=== PATIENT | female | born 1935 | race Caucasian/White ===

== ENCOUNTER → 2018-07-20 | Outpatient (CLI) | payer MEDICARE, MEDICAID ==
--- NOTE | 2018-07-20 16:04 | RADIOLOGY REPORT (SQ) ---
EXAM DESCRIPTION: CAROTID DOPPLER COMPLETED DATE/TIME: 07/20/2018 3:12 pm REASON FOR STUDY: RETINAL HEMORRHAGE LEFT EYE H35.62 RETINAL HEMORRHAGE, LEFT EYE COMPARISON: None. TECHNIQUE: Grayscale ultrasound, Doppler velocity and spectra, and color Doppler images acquired of the extra-cranial carotid and vertebral arteries. Images stored on PACS. LIMITATIONS: None. FINDINGS: RIGHT CAROTID CCA Velocities: Within normal limits. ICA Velocities Peak systolic 86 cm/s. End diastolic 15 cm/s. Proximal ICA/CCA peak systolic ratio 1.3. There is plaque in the proximal internal and external carotid arteries. LEFT CAROTID CCA Velocities: Within normal limits. ICA Velocities Peak systolic 91 cm/s. End diastolic 20 a cm/s. Proximal ICA/CCA peak systolic ratio 1.4. There is some plaque in the common carotid and in the external carotid. VERTEBRAL ARTERIES: Antegrade flow. Normal waveforms. SUBCLAVIAN ARTERIES: No finding. OTHER: No other significant finding. IMPRESSION: NO HEMODYNAMICALLY SIGNIFICANT STENOSIS. COMMENT: Quality ID #[id number]: Velocity criteria are extrapolated from the diameter data as defined by t he Society of Radiologists in Ultrasound Consensus Conference. Radiology 2003: 229; 340-346. TECHNICAL DOCUMENTATION: JOB ID: [id number] [employer]- All Rights Reserved Reading location - IP/workstation name: [email or web address]
== END ==
LOC: SP 16:22
PROVIDERS: ATTEND Ophthalmology
DX: H35.62 Retinal hemorrhage, left eye (principal)
CPT/HCPCS: 93880

== ENCOUNTER 2018-08-18 19:59 | Emergency (ER) | payer MEDICARE, MEDICAID ==
--- NOTE | 2018-08-18 21:09 | RADIOLOGY REPORT (SQ) ---
EXAM DESCRIPTION: XR CHEST 2 VIEWS COMPLETED DATE/TME: 08/18/2018 20:35 CLINICAL HISTORY: 82 years, Female, FEVER Compared to 12/16/2015. FINDINGS: The heart is not enlarged. Aorta is uncoiled. Aortic arch is calcified. No consolidations or pleural effusions. No pulmonary edema or pneumothorax. IMPRESSION: No acute disease.
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
[2018-08-18 21:27] LABS: ABSOLUTE EOSINOPHILS # (AUTO) 0.1 10^3/uL (0.0-0.6); ABSOLUTE MONOCYTES (AUTO) 0.6 10^3/uL (0.1-1.4); ABSOLUTE NEUT (AUTO) 8.1 10^3/uL (1.7-8.2); BASOPHILS % (AUTO) 0.4 % (0-2); EOSINOPHILS % (AUTO) 1.3 % (0-6); HEMATOCRIT 40.5 % (36.0-47.0); HEMOGLOBIN 13.9 g/dL (12.0-15.5); LYMPHOCYTES % (AUTO) 9.9 % (13-45); MEAN CORPUSCULAR HEMOGLOBIN 33.8 pg (27.0-33.4); MEAN CORPUSCULAR HGB CONC 34.2 g/dL (32.0-36.0); MEAN CORPUSCULAR VOLUME 99 fl (80-97); MONOCYTES % (AUTO) 6.1 % (3-13); PLATELET COUNT 146 10^3/uL (150-450); RED CELL DISTRIBUTION WIDTH 15.3 % (11.5-14.0); SEGMENTED NEUTROPHILS % (AUTO) 82.3 % (42-78); TOTAL CELLS COUNTED % (AUTO) 100 %; WHITE BLOOD COUNT 9.9 10^3/uL (4.0-10.5)
[2018-08-18 21:28] LABS: VENOUS BLOOD BASE EXCESS 6.2 mmol/L; VENOUS BLOOD HCO3 32.1 mmol/L (20-32); VENOUS BLOOD PCO2 50.5 mmHg (35-63); VENOUS BLOOD PH 7.42 (7.30-7.42)
[2018-08-18 21:34] LABS: INTERNATIONAL RATION (INR) 0.98; PROTHROMBIN TIME 13.5 SEC (11.4-15.4)
[2018-08-18 21:41] LABS: ALANINE AMINOTRANSFERASE 35 U/L (9-52); ALBUMIN 4.2 g/dL (3.5-5.0); ALKALINE PHOSPHATASE 167 U/L (38-126); ANION GAP 12 (5-19); ASPARTATE AMINO TRANSFERASE 66 U/L (14-36); BILIRUBIN,DIRECT 0.4 mg/dL (0.0-0.4); BILIRUBIN,TOTAL 1.3 mg/dL (0.2-1.3); BLOOD UREA NITROGEN 13 mg/dL (7-20); CALCIUM 8.9 mg/dL (8.4-10.2); CARBON DIOXIDE 32 mmol/L (22-30); CHLORIDE 99 mmol/L (98-107); GLUCOSE 158 mg/dL (75-110); POTASSIUM 3.5 mmol/L (3.6-5.0); TOTAL PROTEIN 7.3 g/dL (6.3-8.2)
[2018-08-18] MEDS ORDERED: METHYLPREDNISOLONE INJ 125 MG/2 ML SDV IV ONE (22:16)
[2018-08-18] MEDS ORDERED: IPRATROPIUM/ALBUTEROL 0.5-2.5 MG/3 ML AMPUL NEB ONE (22:16)
[2018-08-18] MEDS ORDERED: ACETAMINOPHEN 325 MG TABLET PO ONE (22:17)
--- NOTE | 2018-08-18 22:20 | ER Document Report ---
ED Flu Like - General Chief Complaint: Flu Symptoms Stated Complaint: COUGH Time Seen by Provider: 08/18/18 21:27 Primary Care Provider: MASON DOTY DO [ACTIVE STAFF] - Follow up as needed Mode of Arrival: Medic Information source: Patient Notes: 82-year-old female with a history of hypertension, coronary artery disease, hyperlipidemia presents the emergency department with complaints of flulike symptoms. Patient states that she has had intermittent cough and rhinorrhea since March. She states that she is followed up with her PCP, Malinda harper and has been given albuterol inhalers. Patient states that it does help with her symptoms. Patient states that she continues with the cough. She states that it is productive now. She is on home oxygen. She wears 3 L at night. Family states that there has been a history of sick contacts recently. Patient denies any chest pain or shortness of breath. TRAVEL OUTSIDE OF THE [place] IN LAST 30 DAYS: No - HPI Onset: Last week Timing/Duration: Persistent Quality of pain: No pain Severity: Mild Pain Level: Denies Associated symptoms: Productive cough, Rhinnorhea Similar symptoms previously: Yes Recently seen / treated by doctor: Yes - Related Data Allergies/Adverse Reactions: Potassium Clavulanate * [From Augmentin] Allergy (Severe, Verified 04/25/13 16:41) hydrocodone bitartrate [From Vicodin] Adverse Reaction (Severe, Verified 04/25/13 16:41) sulfamethoxazole [From Septra] Adverse Reaction (Severe, Verified 04/25/13 16:41) trimethoprim [From Septra] Adverse Reaction (Severe, Verified 04/25/13 16:41) Past Medical History - General Information source: Patient - Social History Smoking Status: Former Smoker Family History: Reviewed & Not Pertinent - Past Medical History Cardiac Medical History: Reports: Hx Hypercholesterolemia, Hx Hypertension Malignancy Medical History: Reports: Hx Skin Cancer Musculoskeletal Medical History: Reports Hx Arthritis Psychiatric Medical History: Reports: Hx Depression Past Surgical History: Reports: Hx Cardiac Catheterization - stent, Hx Cholecystectomy, Hx Orthopedic Surgery - foot - Immunizations Hx Diphtheria, Pertussis, Tetanus Vaccination: Yes Hx Pneumococcal Vaccination: 04/29/13 Review of Systems - Review of Systems Constitutional: No symptoms reported EENT: Nose congestion, Nose discharge Cardiovascular: No symptoms reported Respiratory: Cough, Sputum, Wheezing Gastrointestinal: No symptoms reported Genitourinary: No symptoms reported Female Genitourinary: No symptoms reported Musculoskeletal: No symptoms reported Skin: No symptoms reported Hematologic/Lymphatic: No symptoms reported Neurological/Psychological: No symptoms reported -: Yes All other systems reviewed and negative Physical Exam - Vital signs Vitals: Temp Pulse Resp BP Pulse Ox 100.0 F 72 26 H 121/64 90 L 08/18/18 20:23 08/18/18 20:23 08/18/18 20:23 08/18/18 20:23 08/18/18 20:23 - Notes Notes: PHYSICAL EXAMINATION: GENERAL: Well-appearing, well-nourished and in no acute distress. HEAD: Atraumatic, normocephalic. EYES: Pupils equal round and reactive to light, extraocular movements intact, conjunctiva are normal. ENT: Nares patent, oropharynx clear without exudates. Moist mucous membranes. NECK: Normal range of motion, supple without lymphadenopathy LUNGS: Diffuse wheezing. No respiratory distress. Speaking in complete sentences. HEART: Regular rate and rhythm without murmurs ABDOMEN: Soft, nontender, nondistended abdomen. No guarding, no rebound. No masses appreciated. Female : deferred Musculoskeletal: Normal range of motion, no pitting or edema. No cyanosis. NEUROLOGICAL: Cranial nerves grossly intact. Normal speech, normal gait. Normal sensory, motor exams PSYCH: Normal mood, normal affect. SKIN: Warm, Dry, normal turgor, no rashes or lesions noted. Course - Re-evaluation Re-evalutation: 08/19/18 00:07 Labs and imaging obtained. Chest x-ray does not show an acute process. Patient's white blood cell count is normal. Remaining labs are unremarkable. Jg shaikh does have a slight urinary tract infection. Patient states that she has chronic urinary tract infections and she is on Keflex prophylactically. Patient was given a gram of Rocephin in the emergency department. Vital signs rechecked. Patient's temperature is now 100.4. Patient was given Tylenol. The rest of the patient's vital signs are improved. On reevaluation, patient's wheezing is reduced. Patient states that she is feeling much better. Patient declines admission. Patient states that she wants to try outpatient antibiotics. I instructed the patient to take the medication prescribed as directed to follow-up with her primary care physician this week for reevaluation, and to return to the emergency department if she continues to have fevers is not eating, drinking or feels like her symptoms are worsening. Patient and her family members are agreeable with plan of care - Vital Signs Vital signs: Temp Pulse Resp BP Pulse Ox 100.4 F 76 19 131/66 H 96 08/18/18 23:52 08/18/18 23:52 08/18/18 23:52 08/18/18 23:52 08/18/18 23:52 - Laboratory Result Diagrams: 08/18/18 21:14 08/18/18 21:14 Laboratory results interpreted by me: 08/18/18 08/18/18 08/18/18 21:14 21:14 21:14 MCV 99 H MCH 33.8 H RDW 15.3 H Plt Count 146 L Seg Neutrophils % 82.3 H Lymphocytes % 9.9 L VBG HCO3 32.1 H Potassium 3.5 L Carbon Dioxide 32 H Est GFR (Non-Af Amer) 59 L Glucose 158 H AST 66 H Alkaline Phosphatase 167 H Ur Leukocyte Esterase 08/18/18 22:35 MCV MCH RDW Plt Count Seg Neutrophils % Lymphocytes % VBG HCO3 Potassium Carbon Dioxide Est GFR (Non-Af Amer) Glucose AST Alkaline Phosphatase Ur Leukocyte Esterase LARGE H Discharge - Discharge Clinical Impression: Bronchitis Urinary tract infection Qualifiers: Urinary tract infection type: site unspecified Hematuria presence: without hematuria Qualified Code(s): N39.0 - Urinary tract infection, site not specified Condition: Stable Disposition: HOME, SELF-CARE Instructions: Bronchitis With Bronchospasm (Wheezing) ([facility]), Urinary Tract Infection ([facility]) Prescriptions: Benzonatate [Tessalon Perles 100 mg Capsule] 100 mg PO Q8HP PRN #20 capsule PRN Reason: Albuterol Sulfate [Proair HFA Inhalation Aerosol 8.5 gm MDI] 2 puff IH Q4H PRN #1 mdi PRN Reason: Cefpodoxime Proxetil [Vantin 200 mg Tablet] 1 tab PO Q12 #14 tab Prednisone [Deltasone 20 mg Tablet] 3 tab PO DAILY 5 Days #15 tablet Referrals: MASON DOTY DO [ACTIVE STAFF] - Follow up as needed
[2018-08-18 22:42] LABS: A TYPE INFLUENZA AG NEGATIVE (NEGATIVE); B INFLUENZA AG NEGATIVE (NEGATIVE)
[2018-08-18 23:05] LABS: APPEARANCE,URINE CLEAR; BILIRUBIN,URINE NEGATIVE (NEGATIVE); COLOR,URINE YELLOW; GLUCOSE, URINE NEGATIVE (NEGATIVE); KETONES,URINE NEGATIVE (NEGATIVE); LEUKOCYTE ESTERASE,URINE LARGE (NEGATIVE); NITRITE,URINE NEGATIVE (NEGATIVE); PROTEIN,URINE NEGATIVE (NEGATIVE); UROBILINOGEN,URINE NEGATIVE mg/dL (<2.0)
[2018-08-18] MEDS ORDERED: CEFTRIAXONE INJ 1000 MG VIAL IV ONE (23:45)
[2018-08-18 23:53] VITALS: BP 131/66
--- NOTE | 2018-08-19 23:05 | EKG REPORT ---
SEVERITY:- ABNORMAL ECG - SINUS RHYTHM IVCD, CONSIDER ATYPICAL LBBB : Confirmed by: Alesha Way 19-Aug-2018 23:05:10
== END 2018-08-19 01:44 | disposition home or self-care (01) ==
LOC: ER 19:59
DX: J40 Bronchitis, not specified as acute or chronic (principal); N39.0 Urinary tract infection, site not specified; R06.2 Wheezing; R09.81 Nasal congestion; R05 Cough; J34.89 Other specified disorders of nose and nasal sinuses; I25.10 Atherosclerotic heart disease of native coronary artery without angina pectoris; I10 Essential (primary) hypertension; Z99.81 Dependence on supplemental oxygen; Z88.0 Allergy status to penicillin; Z87.891 Personal history of nicotine dependence; Z95.5 Presence of coronary angioplasty implant and graft
CPT/HCPCS: 93005; 94640; 99284; 96375; 96365; 36415; 87040; 87086; 85025; 85610; 87088; 80053; 81001; 87186; 82803; 83605; 87804; 71046; 93010; A9270 ×2; J2930; J0696; J7620

== ENCOUNTER 2019-01-28 11:55 | Emergency (ER) | payer MEDICARE, MEDICAID ==
--- NOTE | 2019-01-28 12:10 | ER Document Report ---
HPI - HPI Patient complains to provider of: low back pain, weakness Time Seen by Provider: 01/28/19 12:08 Onset: Last week Onset/Duration: Gradual, Persistent, Waxing and waning Quality of pain: Sharp Severity: Moderate Pain Level: 2 Context: 83-year-old female with a list of past medical history here for low back pain, left leg weakness, and generalized weakness for the last week, worsening after she had a fall a week ago. She has not sought medical care until now. Her daughter states that she had 2 episodes of this last week of fecal incontinence. She states she appears to drag her left leg when she transfers now. States usually she is able to only transfer at baseline however she requires significant assistance to you to achieve this now. She states she has had significant fatigue and mostly slept over the last week which is atypical for her. No spinal surgeries. She recently had a UTI was on 3 different antibiotics however states those symptoms resolved over a week ago. No spinal surgeries. Has complaints of pain in her left hip. No numbness, tingling, other weakness, saddle anesthesia, or urinary incontinence or retention. No other trauma or injury or history of this before. No IV drug use. No fevers. Pain worse with movement. better with rest. Denies hitting her head or passing out. No seizure-like activity. No other complaints at this time. Associated Symptoms: Weakness. denies: Chest pain, Fever, Headache, Leg swelling, Nausea, Vomiting, Shortness of breath Exacerbated by: Movement Relieved by: Remaining still Similar symptoms previously: No Recently seen / treated by doctor: No - ROS Systems Reviewed and Negative: Yes All other systems reviewed and negative - to include 10, unless mentioned in the hpi - REPRODUCTIVE Reproductive: DENIES: : Past Medical History - General Information source: Patient, Relative - daughter, son in law, and grand daughter - Social History Smoking Status: Unknown if Ever Smoked Frequency of alcohol use: None Drug Abuse: None Lives with: Family Family History: Reviewed & Not Pertinent Patient has suicidal ideation: No Patient has homicidal ideation: No - Past Medical History Cardiac Medical History: Reports: Hx Hypercholesterolemia, Hx Hypertension Denies: Hx DVT, Hx Pulmonary Embolism Neurological Medical History: Reports: Other - peripheral neuropathy. Denies: Hx Seizures Endocrine Medical History: Denies: Hx Diabetes Mellitus Type 1, Hx Diabetes Mellitus Type 2, Hx Hyperthyroidism, Hx Hypothyroidism Renal/ Medical History: Denies: Hx Peritoneal Dialysis Malignancy Medical History: Reports: Hx Skin Cancer GI Medical History: Reports: Hx Gastroesophageal Reflux Disease Musculoskeletal Medical History: Reports Hx Arthritis, Reports Hx Gout Psychiatric Medical History: Reports: Hx Depression Past Surgical History: Reports: Hx Cardiac Catheterization - stent, Hx Cholecystectomy, Hx Orthopedic Surgery - foot - Immunizations Hx Diphtheria, Pertussis, Tetanus Vaccination: Yes Hx Pneumococcal Vaccination: 04/29/13 Vertical Provider Document - CONSTITUTIONAL Notes: Vital signs: All vital signs were reviewed per nursing notes. Gen. Appearance: Nontoxic, patient of stated age, sitting comfortably in the bed. pleasant, obese elderly white female, sits up with assistance, smiling, speaking in full sentences, in no sign of pain or resp distress, however does appear to have pain on movement, nontoxic, family at bedside Psychiatric: Alert and oriented x3, pleasant and very conversational, normal affect. Skin: Warm, pink, dry, normal turgor, no rashes. no grossly visible overlying skin changes or signs of trauma. HEENT: Normocephalic, atraumatic, no chawla signs. no raccoon eyes, pupils are equal and reactive to light, extraocular muscles intact, tympanic membranes and canals normal bilat, mucosal membranes moist, pink conjunctiva, no pharyngeal erythema no tonsilar exudate. no drooling, tripoding, voice change or stridor, uvula midline. tongue protrudes midline Neck: Supple, no JVD, no tenderness, no lymphadenopathy. full rom and full strength. no meningeal signs. no signs of central cord syndrome CV: Regular rate and rhythm, no murmurs Lungs: Clear to auscultation bilaterally, no wheezes, symmetrical chest rise. no chest wall ttp Abdomen: Soft, nontender, nondistended, good bowel sounds, no rebound, rigidity, guarding or peritoneal signs. No CVA tenderness bilaterally. This is a nonacute abdomen. No tenderness over McBurney's point. no grossly visible or pal pable abdominal hernias Genitalia: pt deferred Rectal: deferred; however, no sign of loss of bowel or bladder, no soiling of clothing Back: There is increased tissue tension over the paralumbar musculature on the bilat sides, L>R. Palpation to this region did reproduce patient's pain exactly. There is no tenderness to palpation along the midline of the cervical, thoracic or lumbar spine. There are no step-offs or deformities noted. no overlying skin changes. Extremities: Distal pulses two out of four, good capillary refill, no edema, cyanosis or clubbing. full rom and full strength in all extremities with pain on left hip flexion and extension. no swelling or ttp of the extremities. gait not assessed due to pt being mostly nonambulatory at baseline. good hand retail general manager. neg mauricio sign. neg [place] squeeze. no drop foot. no shortening or rotation of the limbs. no obvious deformities. Neuro: Cranial nerves II through XII intact, normal speech, cerebellar function intact. Symmetric smile and faces. reflexes wnl. motor and sensation intact to light touch. - INFECTION CONTROL TRAVEL OUTSIDE OF THE [place] IN LAST 30 DAYS: No Course - Re-evaluation Re-evalutation: 01/28/19 19:27 Patient here for low back pain and left hip pain x 1 wk. She also describes 2 episodes of fecal incontinence and left leg weakness and generalized weakness over the last week after she had an accidental mechanical fall. Her labs were unremarkable other than a potassium of 2.8 which was replaced IV. Case discussed with ED attending, Dr. Stephen, who advised to get a CT of her lumbar spine and hip first and if it showed an acute fracture then we could transfer to a tertiary facility that had neurosurgery since that is not available here at this facility. Her CT lumbar spine and CT left hip without contrast showed degenerative changes but was otherwise negative for anything acute per radiology and reviewed by myself. secondary to her hx and concern for cauda equina dr stephen, did then advise to get an MRI of her lumbar spine. i then called the radiologist general operations manager, dr sandoval, and asked her if she needed the mri of her lumbar spine to rule out cauda equina with and without contrast or just without contrast and she told me to order it with and without and she would cancel the w ith if she felt necessary. mri of her lumbar spine just showed chronic degenerative changes but nothing acute per rad and reviewed by myself. pt informed of her findings. she was pain controlled here. advised tylenol for any pain at home. ice/heat to the area. she has medicaid so advised she needs to f/u with her pcp for a referral to likely neurosurg in 1-2 days and that pcp can set up PT/OT at home to help strengthen her back up. also will dc with 7 days of KCl 20meq po qD x 7 days given her significant hypokalemia here today. her ekg was unremarkable per dr stephen. advised to return to the er for any worsening sx. no other signs of spinal cord involvement, cauda equina, or central cord syndrome and pt remained neurononfocal here. vss. well appearing. satting well on ra. On reexam, pt improved with tx listed. remained stable. nontoxic. well appearing. pain controlled. tolerating po. requesting to go home. case discussed with ER Attending, Dr. stephen, who directed and agrees with plan of care and advised no further workup indicated at this time and pt is stable for dc home with close f/u with pcp/specialist. Documentation achieved through voice recording which my lead to some occasional accidental typographical errors. Extensive efforts have been made to proof read documentation to make sure these are the least as possible. Category Date Time Status EKG Documentation STAT Care 01/28/19 13:54 Completed Straight Catheter (ED) NOW Care 01/28/19 13:[address] LT LOWER EXTREMITY WITHOUT [CT] Stat Exams 01/28/19 13:[address] LUMBAR SPINE WITHOUT [CT] Stat Exams 01/28/19 13:01 Completed MRI LUMBAR SPINE COMBO [MRI] Stat Exams 01/28/19 14:18 Completed CBC WITH DIFF [HEME] Stat Lab 01/28/19 12:29 Completed CMP [COMPREHENSIVE METABOLIC PANEL] [CHEM] Stat Lab 01/28/19 12:29 Completed MAGNESIUM [CHEM] Stat Lab 01/28/19 12:29 Completed T4 [FREE T4 (FREE THYROXINE)] [CHEM] Stat Lab 01/28/19 12:29 Completed TSH [THYROID STIMULATING HORMONE] [CHEM] Stat Lab 01/28/19 12:29 Completed UA [URINALYSIS] [URIN] Stat Lab 01/28/19 13:41 Completed Oxycodone HCl [Oxy-Ir 5 mg Tablet] Med 01/28/19 15:34 Discontinued 5 mg PO NOW ONE Potassi Cl 20 Meq/50 ml Ady [Potassium Chloride Ady Med 01/28/19 14:05 Discontinued 20 Meq/50 ml] 20 meq in 50 ml IV Q2H [place] Cl 40 Meq/Ns 1L [NaCl 0.9% 1000 ml/KCl 40 Meq Med 01/28/19 13:31 Discontinued Premix Bag] 1,000 ml IV CONTINUOUS EKG ER ONLY [ER] Stat Oth 01/28/19 Completed - Vital Signs Vital signs: Temp Pulse Resp BP Pulse Ox 98 F 61 12 119/62 95 01/28/19 12:06 01/28/19 12:06 01/28/19 12:06 01/28/19 12:06 01/28/19 12:06 01/28/19 19:40 Temp Pulse Resp BP BP Pulse Ox 01/28/19 16:34 21 H 129/93 H 98 01/28/19 16:33 22 H 97 01/28/19 16:26 21 H 147/79 H 98 01/28/19 16:25 98.1 F 18 99 01/28/19 16:19 21 H 150/95 H 99 01/28/19 16:18 19 01/28/19 16:00 27 H 100 01/28/19 15:46 26 H 155/101 H 98 01/28/19 15:01 15 117/59 L 01/28/19 14:01 13 110/61 95 01/28/19 13:01 13 113/61 01/28/19 12:06 98 F 61 13 119/62 119/62 95 - Laboratory Result Diagrams: 01/28/19 12:29 01/28/19 12:29 Laboratory results interpreted by me: 01/28/19 19:41 Labs- Entire Visit 01/28/19 01/28/19 01/28/19 12:29 12:29 12:29 WBC 8.3 RBC 3.94 Hgb 12.8 Hct 39.3 MCV 100 H MCH 32.6 MCHC 32.6 RDW 15.7 H Plt Count 143 L Seg Neutrophils % 61.9 Lymphocytes % 26.9 Monocytes % 8.3 Eosinophils % 2.6 Basophils % 0.3 Absolute Neutrophils 5.1 Absolute Lymphocytes 2.2 Absolute Monocytes 0.7 Absolute Eosinophils 0.2 Absolute Basophils 0.0 Sodium 145.2 H Potassium 2.8 L* Chloride 103 Carbon Dioxide 36 H Anion Gap 6 BUN 11 Creatinine 1.01 Est GFR ( Amer) > 60 Est GFR (Non-Af Amer) 52 L Glucose 106 Calcium 9.1 Magnesium 2.2 Total Bilirubin 0.9 Direct Bilirubin 0.3 Neonat Total Bilirubin Not Reportable Neonat Direct Bilirubin Not Reportable Neonat Indirect Bili Not Reportable AST 39 H ALT 13 Alkaline Phosphatase 135 H Total Protein 7.2 Albumin 3.7 TSH 1.88 Free T4 0.93 Urine Color Urine Appearance Urine pH Ur Specific [place] Urine Protein Urine Glucose (UA) Urine Ketones Urine Blood Urine Nitrite Urine Bilirubin Urine Urobilinogen Ur Leukocyte Esterase Urine WBC (Auto) Urine RBC (Auto) Urine Mucus (Auto) Urine Ascorbic Acid 01/28/19 13:41 WBC RBC Hgb Hct MCV MCH MCHC RDW Plt Count Seg Neutrophils % Lymphocytes % Monocytes % Eosinophils % Basophils % Absolute Neutrophils Absolute Lymphocytes Absolute Monocytes Absolute Eosinophils Absolute Basophils Sodium Potassium Chloride Carbon Dioxide Anion Gap BUN Creatinine Est GFR ( Amer) Est GFR (Non-Af Amer) Glucose Calcium Magnesium Total Bilirubin Direct Bilirubin Neonat Total Bilirubin Neonat Direct Bilirubin Neonat Indirect Bili AST ALT Alkaline Phosphatase Total Protein Albumin TSH Free T4 Urine Color YELLOW Urine Appearance CLEAR Urine pH 7.0 Ur Specific [place] 1.009 Urine Protein NEGATIVE Urine Glucose (UA) NEGATIVE Urine Ketones NEGATIVE Urine Blood NEGATIVE Urine Nitrite NEGATIVE Urine Bilirubin NEGATIVE Urine Urobilinogen NEGATIVE Ur Leukocyte Esterase NEGATIVE Urine WBC (Auto) 4 Urine RBC (Auto) 1 Urine Mucus (Auto) RARE Urine Ascorbic Acid NEGATIVE - Diagnostic Test Radiology reviewed: Image reviewed, Reports reviewed Radiology results interpreted by me: 01/28/19 19:[address] 01/28/19 13:01 IMPRESSION: No fracture dislocation of the lumbar spine. There is generally mild multilevel disc degenerative disease and severe multilevel facet degenerative disease and multilevel facet ankylosis. Lumbar disc and neural foraminal pathology may be further evaluated by MRI if indicated by localizing signs and symptoms. Lower Extremity CT 01/28/19 13:02 IMPRESSION: NO ACUTE OR SIGNIFICANT FINDINGS IN THE HIP OR PELVIS. Lumbar Spine MRI 01/28/19 14:18 IMPRESSION: Mild degenerative changes as above. No acute findings - EKG Interpretation by Me EKG shows normal: Sinus rhythm - 61bpm. no stemi, nonspecific ivcd with lad, lvh with secondary repolarization abnormality, reviewed with dr stephen Shunk/QRS: IVCD When compared to previous EKG there are: No significant change Discharge - Discharge Clinical Impression: Bulging discs, Hypokalemia Low back pain Qualifiers: Chronicity: acute Back pain laterality: unspecified Sciatica presence: with sciatica Sciatica laterality: sciatica of left side Qualified Code(s): M54.42 - Lumbago with sciatica, left side Condition: Good Disposition: HOME, SELF-CARE Instructions: Herniated Disc ([facility]), Hypokalemia ([facility]), Low Back Pain ([facility]) Additional Instructions: follow-up with PCP/neurosurgery 1 to 2 days. Return for any worsening symptoms. Ice/heat to your back. Tylenol as needed for any pain. Take the medication as prescribed. Follow-up with your primary care doctor for recheck of your potassium as it was low today. Prescriptions: Potassium Chloride [Klor-Con] 20 meq PO DAILY 7 Days #7 packet Referrals: SUHAIL LEPE PA-C [Primary Care Provider] - Follow up as needed
[2019-01-28 13:18] LABS: ABSOLUTE EOSINOPHILS # (AUTO) 0.2 10^3/uL (0.0-0.6); ABSOLUTE LYMPHOCYTES (AUTO) 2.2 10^3/uL (0.5-4.7); ABSOLUTE MONOCYTES (AUTO) 0.7 10^3/uL (0.1-1.4); ABSOLUTE NEUT (AUTO) 5.1 10^3/uL (1.7-8.2); BASOPHILS % (AUTO) 0.3 % (0-2); EOSINOPHILS % (AUTO) 2.6 % (0-6); HEMATOCRIT 39.3 % (36.0-47.0); HEMOGLOBIN 12.8 g/dL (12.0-15.5); LYMPHOCYTES % (AUTO) 26.9 % (13-45); MEAN CORPUSCULAR HEMOGLOBIN 32.6 pg (27.0-33.4); MEAN CORPUSCULAR HGB CONC 32.6 g/dL (32.0-36.0); MEAN CORPUSCULAR VOLUME 100 fl (80-97); MONOCYTES % (AUTO) 8.3 % (3-13); PLATELET COUNT 143 10^3/uL (150-450); RED BLOOD COUNT 3.94 10^6/uL (3.72-5.28); RED CELL DISTRIBUTION WIDTH 15.7 % (11.5-14.0); SEGMENTED NEUTROPHILS % (AUTO) 61.9 % (42-78); TOTAL CELLS COUNTED % (AUTO) 100 %; WHITE BLOOD COUNT 8.3 10^3/uL (4.0-10.5)
[2019-01-28 13:20] LABS: ALANINE AMINOTRANSFERASE 13 U/L (9-52); ALBUMIN 3.7 g/dL (3.5-5.0); ALKALINE PHOSPHATASE 135 U/L (38-126); ANION GAP 6 (5-19); ASPARTATE AMINO TRANSFERASE 39 U/L (14-36); BILIRUBIN,DIRECT 0.3 mg/dL (0.0-0.4); BILIRUBIN,TOTAL 0.9 mg/dL (0.2-1.3); BLOOD UREA NITROGEN 11 mg/dL (7-20); CALCIUM 9.1 mg/dL (8.4-10.2); CARBON DIOXIDE 36 mmol/L (22-30); CHLORIDE 103 mmol/L (98-107); GLUCOSE 106 mg/dL (75-110); SODIUM 145.2 mmol/L (137-145); TOTAL PROTEIN 7.2 g/dL (6.3-8.2)
[2019-01-28 13:23] LABS: POTASSIUM 2.8 mmol/L (3.6-5.0)
[2019-01-28] MEDS ORDERED: POTASSI CL 40 MEQ/NS 1L 1,000 ML IV PRN (13:31)
[2019-01-28 13:36] LABS: FREE T4 (FREE THYROXINE) 0.93 ng/dL (0.78-2.19)
[2019-01-28 13:50] LABS: THYROID STIMULATING HORMONE 1.88 uIU/mL (0.47-4.68)
--- NOTE | 2019-01-28 13:54 | RADIOLOGY REPORT (SQ) ---
EXAM DESCRIPTION: CT LUMBAR SPINE WITHOUT COMPLETED DATE/TIME: 01/28/2019 1:34 pm REASON FOR STUDY: low back pain, fecal incontinence, leftleg weaknes COMPARISON: None. TECHNIQUE: Axial images acquired through the lumbar spine without intravenous contrast. Images revi ewed with lung, soft tissue and bone windows. Reconstructed coronal and sagittal MPR images reviewed . All images stored on PACS. All CT scanners at this facility use dose modulation, iterative reconstruction, and/or weight based d osing when appropriate to reduce radiation dose to as low as reasonably achievable (ALARA). [facility]: Dose Right [facility]: CareDose [facility]: Dose Right [facility]: Teradose 4D [facility]: [employer] RADIATION DOSE: 1233 mGy cm LIMITATIONS: None. FINDINGS: SEGMENTATION: Normal. No transitional anatomy. ALIGNMENT: Normal. VERTEBRAL BODIES: No fractures. No dislocation. No acute findings. Osteopenia. DISCS: Generally mild multilevel disc space height loss and osteophytosis. Study limited by lack of intrathecal contrast. PEDICLES, TRANSVERSE PROCESSES: No fractures. No dislocation. No acute findings. FACETS, POSTERIOR ELEMENTS: Severe multilevel facet degenerative disease and multilevel facet ankylos is. No dislocation. No spinal stenosis. HARDWARE: None in the spine. VISUALIZED RIBS: No fractures. SOFT TISSUES: Calcific atherosclerosis. OTHER: No other significant finding. IMPRESSION: No fracture dislocation of the lumbar spine. There is generally mild multilevel disc de generative disease and severe multilevel facet degenerative disease and multilevel facet ankylosis. Lumbar disc and neural foraminal pathology may be further evaluated by MRI if indicated by localizing signs and symptoms. TECHNICAL DOCUMENTATION: JOB ID: [id number] Quality ID # [id number]: Final reports with documentation of one or more dose reduction techniques (e.g., Au tomated exposure control, adjustment of the mA and/or kV according to patient size, use of iterative reconstruction technique) 2010 [employer]- All Rights Reserved Reading location - IP/workstation name: [email or web address]
--- NOTE | 2019-01-28 14:01 | RADIOLOGY REPORT (SQ) ---
EXAM DESCRIPTION: CT LT LOWER EXTREMITY WITHOUT COMPLETED DATE/TIME: 01/28/2019 1:34 pm REASON FOR STUDY: left hip pain, fall, weakness, COMPARISON: None. TECHNIQUE: CT scan of the left hip performed without intravenous or oral contrast. Images reviewed with soft tissue and bone windows. Reconstructed coronal and sagittal MPR images reviewed. All imag es stored on PACS. All CT scanners at this facility use dose modulation, iterative reconstruction, and/or weight based d osing when appropriate to reduce radiation dose to as low as reasonably achievable (ALARA). [facility]: Dose Right [facility]: CareDose [facility]: Dose Right [facility]: Teradose 4D [facility]: [employer]pi RADIATION DOSE: CT Rad equipment meets quality standard of care and radiation dose reduction techniq ues were employed. CTDIvol: 36.8 mGy. DLP: 1285 mGy-cm. mGy. LIMITATIONS: None. FINDINGS: The left hip and hemipelvis was scanned. PELVIC BONES: No acute fracture. No worrisome bone lesions. LEFT HIP: No acute fracture or dislocation. No worrisome bone lesions. PELVIC SOFT TISSUES: No significant findings. EXTRAPELVIC SOFT TISSUES: No significant findings. OTHER: Vacuum phenomenon left SI joint. IMPRESSION: NO ACUTE OR SIGNIFICANT FINDINGS IN THE HIP OR PELVIS. TECHNICAL DOCUMENTATION: JOB ID: [id number] Quality ID # [id number]: Final reports with documentation of one or more dose reduction techniques (e.g., Au tomated exposure control, adjustment of the mA and/or kV according to patient size, use of iterative reconstruction technique) 2010 [employer]- All Rights Reserved Reading location - IP/workstation name: [email or web address]
[2019-01-28 14:12] LABS: APPEARANCE,URINE CLEAR; BILIRUBIN,URINE NEGATIVE (NEGATIVE); COLOR,URINE YELLOW; GLUCOSE, URINE NEGATIVE (NEGATIVE); KETONES,URINE NEGATIVE (NEGATIVE); LEUKOCYTE ESTERASE,URINE NEGATIVE (NEGATIVE); NITRITE,URINE NEGATIVE (NEGATIVE); PROTEIN,URINE NEGATIVE (NEGATIVE); URINE SPECIFIC GRAVITY 1.009; UROBILINOGEN,URINE NEGATIVE mg/dL (<2.0)
[2019-01-28] MEDS: POTASSI CL 20 MEQ/50 ML RIDER 20 MEQ/50 ML RTUPB IV SCH ×2 (15:14→17:46)
[2019-01-28] MEDS ORDERED: OXYCODONE HCL IR 5 MG TABLET PO ONE (15:34)
--- NOTE | 2019-01-28 16:23 | EKG REPORT ---
SEVERITY:- ABNORMAL ECG - SINUS RHYTHM NONSPECIFIC IVCD WITH LAD LVH WITH SECONDARY REPOLARIZATION ABNORMALITY : Confirmed by: Melvin Balderrama MD 28-Jan-2019 16:22:27
--- NOTE | 2019-01-28 17:09 | RADIOLOGY REPORT (SQ) ---
EXAM DESCRIPTION: MRI LUMBAR SPINE COMBO COMPLETED DATE/TIME: 01/28/2019 4:52 pm REASON FOR STUDY: fall, fecal incontinence, left leg weakness, lbp COMPARISON: MRI lumbar spine 04/26/2013 CT lumbar spine 01/18/2019 TECHNIQUE: Sagittal and Axial imaging includes T1, T1 post gadolinium, T2, STIR and gradient echo se quences. Coronal T2/HASTE imaging. CONTRAST TYPE AND DOSE: 20 mL Dotarem. RENAL FUNCTION: Not indicated. ACR Type II contrast agent associated with few, if any, unconfounded cases of NSF LIMITATIONS: None. FINDINGS: VISUALIZED UPPER ABDOMEN: Limited evaluation. No acute or suspicious findings suggested. SEGMENTATION: No transitional anatomy. The lowest well-developed disc space is labeled L5-S1. ALIGNMENT: Minimal grade 1 anterolisthesis of L4 over L5. VERTEBRAE: Intact. No fractures. BONE MARROW: Normal. No marrow replacement or reactive changes. DISC SIGNAL: Diffuse decreased T2 weighted intervertebral disc signal POSTERIOR ELEMENTS: Generally intact. No pars defect evident. HARDWARE: None in the spine. CORD AND CONUS: Normal in size and signal intensity. Conus at the L1 level. No abnormal intrinsic si gnal or contrast enhancement SOFT TISSUES: No aortic aneurysm seen. No bulky retroperitoneal adenopathy or mass. No paraspinal mas s or fluid. T10-11: At the upper edge of the field of view. Bulky left-sided facet arthropathy causes moderate left T10-11 foraminal narrowing. No significant central canal narrowing or right foraminal stenosis. T11-12: Asymmetric right-sided facet arthropathy causes minimal right foraminal narrowing. No centr al canal stenosis or left foraminal stenosis T12-L1: Mild diffuse posterior disc bulging is present with moderate bilateral facet hypertrophy. N o central canal narrowing or right foraminal stenosis. Mild to moderate left foraminal narrowing. L1-L2: Minimal posterior disc bulging, mild bilateral facet arthropathy. No central or foraminal enc roachment. L2-L3: Mild bilateral facet arthropathy. No central or foraminal stenosis. L3-L4: Minimal posterior disc bulging, mild bilateral facet hypertrophy. Borderline central canal na rrowing best shown on axial image 17. No significant foraminal stenosis. L4-L5: Minimal grade 1 anterolisthesis of L4 over L5, moderate bilateral facet and ligament hypertrop hy. No central or foraminal stenosis. L5-S1: Moderate bilateral facet arthropathy. No central or foraminal stenosis. SACRUM: Visualized upper sacrum intact. ENHANCEMENT: No abnormal vertebral body, intervertebral disc, conus, or lumbar nerve root enhancement . OTHER: No other significant findings. IMPRESSION: Mild degenerative changes as above. No acute findings TECHNICAL DOCUMENTATION: JOB ID: [id number] [employer]- All Rights Reserved Reading location - IP/workstation name: [email or web address]
[2019-01-28 20:42] VITALS: BP 127/56
== END 2019-01-28 20:50 | disposition home or self-care (01) ==
LOC: ER 11:55
DX: M51.26 Other intervertebral disc displacement, lumbar region (principal); M54.42 Lumbago with sciatica, left side; E87.6 Hypokalemia; M62.81 Muscle weakness (generalized); R15.9 Full incontinence of feces; W19.XXXA Unspecified fall, initial encounter; I10 Essential (primary) hypertension
CPT/HCPCS: 93005; 36415; 84439; 83735; 84443; 85025; 80053; 81001; 72158; 72131; 73700; 93010; J3480; A9270

== ENCOUNTER 2019-05-05 14:40 | Emergency (ER) | payer MEDICARE, MEDICAID ==
--- NOTE | 2019-05-05 16:30 | ER Document Report ---
ED General - General Chief Complaint: Facial Injury Stated Complaint: FALL Time Seen by Provider: 05/05/19 15:46 Primary Care Provider: SUHAIL LEPE PA-C [Primary Care Provider] - Follow up as needed TRAVEL OUTSIDE OF THE [place] IN LAST 30 DAYS: No - Related Data Allergies/Adverse Reactions: Potassium Clavulanate * [From Augmentin] Allergy (Severe, Verified 04/25/13 16:41) baclofen Allergy (Verified 01/28/19 12:27) Confusion Irritability hydrocodone bitartrate [From Vicodin] Adverse Reaction (Severe, Verified 04/25/13 16:41) sulfamethoxazole [From Septra] Adverse Reaction (Severe, Verified 04/25/13 16:41) trimethoprim [From Septra] Adverse Reaction (Severe, Verified 04/25/13 16:41) Past Medical History - Social History Smoking Status: Never Smoker Chew tobacco use (# tins/day): No Frequency of alcohol use: None Drug Abuse: None Family History: Reviewed & Not Pertinent Patient has suicidal ideation: No Patient has homicidal ideation: No - Past Medical History Cardiac Medical History: Reports: Hx Hypercholesterolemia, Hx Hypertension Denies: Hx DVT, Hx Pulmonary Embolism Neurological Medical History: Denies: Hx Seizures Endocrine Medical History: Denies: Hx Diabetes Mellitus Type 1, Hx Diabetes Mellitus Type 2, Hx Hyperthyroidism, Hx Hypothyroidism Renal/ Medical History: Denies: Hx Peritoneal Dialysis Malignancy Medical History: Reports: Hx Skin Cancer GI Medical History: Reports: Hx Gastroesophageal Reflux Disease Musculoskeletal Medical History: Reports Hx Arthritis, Reports Hx Gout Psychiatric Medical History: Reports: Hx Depression Past Surgical History: Reports: Hx Cardiac Catheterization - stent, Hx Cholecystectomy, Hx Orthopedic Surgery - foot - Immunizations Hx Diphtheria, Pertussis, Tetanus Vaccination: Yes Hx Pneumococcal Vaccination: 04/29/13 Physical Exam - Vital signs Vitals: Temp Pulse Resp BP Pulse Ox 98.1 F 58 L 14 117/58 L 95 05/05/19 14:41 05/05/19 14:41 05/05/19 14:41 05/05/19 14:41 05/05/19 14:41 - Notes Notes: Patient was brought in by paramedics status post fall she was standing up from the chair to get into a wheelchair when she lost her balance and fell forward hitting her head and right knee patient is essentially nonweightbearing and can only stand to wheelchair transfer she had no preceding chest pain or dizziness. She did hit her head but had no loss consciousness. Remembers helped her up. Presents now complaining of a headache right knee pain. Denies any abnormal vision nausea vomiting chest pain shortness of breath or abdominal pain Past medical history is significant for hypertension coronary artery disease with stents. Spinal stenosis. Social history she does not smoke and this is unknown medications been reviewed she is on Brilinta\ Review of systems all systems were reviewed and acutely negative except as in HPI report easy bruising PHYSICAL EXAMINATION: GENERAL: Well-appearing, well-nourished and in no acute distress. Vital signs noted HEAD: Atraumatic, normocephalic. EYES: Pupils equal round and reactive to light, extraocular movements intact, no nystagmus. Conjunctiva clear sclera anicteric, conjunctiva are normal. ENT: nares patent, oropharynx clear without exudates. Moist mucous membranes. TMs are clear patient is nontender there is a 2 cm laceration superior and lateral aspect left eyebrow orbits are intact rest of the face is nontender NECK: Normal range of motion, supple without lymphadenopathy minimal tenderness to palpation but no step-off LUNGS: Breath sounds clear to auscultation bilaterally and equal. No wheezes rales or rhonchi. Old bruise over the left anterior chest nontender no crepitus HEART: Regular rate and rhythm without murmurs ABDOMEN: Soft, nontender, normoactive bowel sounds. No guarding, no rebound. No masses appreciated. EXTREMITIES: Upper extremities are nontender with good range of motion of the elbow and wrist left lower extremity is nontender right lower extremity is markedly decreased range of motion can only actively flex to about 10 degrees actively passively to about 20 but family says she has limited mobility anyway. Gross laxity. Tib-fib ankle and foot are nontender good sensation to the first dorsal webspace Back no tenderness in the midline no pain with sitting stable with good range of motion of the hips NEUROLOGICAL: Alert and oriented x4. Cranial nerves symmetrical smile and facial expressions. Motor strength is symmetric bilaterally in the upper lower extremities. Toes are downgoing. Sensation intact to light touch. Negative Romberg was not tested as she is initially nonmobile PSYCH: Normal mood, normal affect. SKIN: Warm, Dry, normal turgor, no rashes , multiple old bruises on the arms and legs Course - Re-evaluation Re-evalutation: 05/05/19 21:39 ED patient has remained stable nonfocal neurological exam Medical decision making presents status post fall. Head CT is negative she is neurologically intact she looks well can be discharged home discussed findings with family and emphasized need to watch the patient closely over the next 24 hours because of the possibility of delayed bleeding. I also advised him to review the head injury instructions patient had multiple sutures placed and family was advised to manage these Procedure - Vital Signs Vital signs: Temp Pulse Resp BP Pulse Ox 97.8 F 58 L 14 127/41 H 97 05/05/19 19:25 05/05/19 14:41 05/05/19 19:25 05/05/19 19:25 05/05/19 19:25 - Diagnostic Test Radiology reviewed: Reports reviewed Procedures - Laceration/Wound Repair Face Wound length (cm): 4 Wound's Depth, Shape: Into muscle, Linear Laceration pre-procedure: Chloraprep applied Anesthetic type: 1% Lidocaine w/epi Wound explored: Clean, No foreign body removed Wound Repaired With: Other - The subcu was closed with Vicryl and the skin closed with interrupted Vicryl patient does not have to return for suture removal Layer Closure?: Yes Number Deep Layer Sutures: 2 Discharge - Discharge Clinical Impression: Concussion Facial laceration Qualifiers: Encounter type: initial encounter Qualified Code(s): S01.81XA - Laceration without foreign body of other part of head, initial encounter Clinical Impression: (Ruled Out): Mild head injury Condition: Good Disposition: HOME, SELF-CARE Instructions: Contusion ([facility]), Head Injury Precautions ([facility]), Laceration Care ([facility]) Additional Instructions: you can take Tylenol for pain. Ice to your head 3 times a day for pain, remove the dressing in 24 hours, if the stitches are still present in 1 week rub the wound gently 2-[address] of the head was negative however because of the medications you take is a possibility of delayed bleeding return immediately for severe headache nausea vomiting or angina behavior Referrals: SUHAIL LEPE PA-C [Primary Care Provider] - Follow up as needed
[2019-05-05] MEDS ORDERED: DIPH/PERTUSS(ACELL)/TETANUS VAC/PF 0.5 ML SYR (>=10YO) IM ONE (16:32)
[2019-05-05] MEDS ORDERED: LIDOCAINE 0.5%/EPINEPHRINE INJ 50 ML VIAL INJ ONE (16:38)
--- NOTE | 2019-05-05 17:16 | RADIOLOGY REPORT (SQ) ---
EXAM DESCRIPTION: CT HEAD WITHOUT COMPLETED DATE/TIME: 05/05/2019 5:02 pm REASON FOR STUDY: Trauma COMPARISON: CT head 12/16/2015. TECHNIQUE: Axial images acquired through the brain without intravenous contrast. Images reviewed wi th bone, brain and subdural windows. Additional sagittal and coronal reconstructions were generated. Images stored on PACS. All CT scanners at this facility use dose modulation, iterative reconstruction, and/or weight based d osing when appropriate to reduce radiation dose to as low as reasonably achievable (ALARA). [facility]: Dose Right [facility]: CareDose [facility]: Dose Right [facility]: Teradose 4D [facility]: Starriser RADIATION DOSE: mGy. LIMITATIONS: None. FINDINGS: VENTRICLES: Prominent ventricles secondary to involutional atrophy. CEREBRUM: No masses. No hemorrhage. No midline shift. No evidence for acute infarction. Old left basal ganglia lacunar infarct. Normal carrasquillo/white matter differentiation. No areas of low density in t he white matter. CEREBELLUM: No masses. No hemorrhage. No alteration of density. No evidence for acute infarction. EXTRAAXIAL SPACES: No fluid collections. No masses. ORBITS AND GLOBE: No intra- or extraconal masses. Normal contour of globe without masses. CALVARIUM: No fracture. PARANASAL SINUSES: No fluid or mucosal thickening. SOFT TISSUES: Left lateral supraorbital subcutaneous soft tissue hematoma/contusion. OTHER: No other significant finding. IMPRESSION: Left lateral supraorbital subcutaneous soft tissue hematoma/contusion. No acute intracr anial findings or facial/calvarial fracture. EVIDENCE OF ACUTE STROKE: NO. COMMENT: Quality ID # [id number]: Final reports with documentation of one or more dose reduction techniques (e.g., Automated exposure control, adjustment of the mA and/or kV according to patient size, use of iterative reconstruction technique) TECHNICAL DOCUMENTATION: JOB ID: [id number] [employer]- All Rights Reserved Reading location - IP/workstation name: [email or web address]
--- NOTE | 2019-05-05 17:18 | RADIOLOGY REPORT (SQ) ---
EXAM DESCRIPTION: CT CERVICAL SPINE WITHOUT COMPLETED DATE/TIME: 05/05/2019 5:02 pm REASON FOR STUDY: Trauma COMPARISON: None. TECHNIQUE: Axial images acquired through the cervical spine without intravenous contrast. Images re viewed with lung, soft tissue and bone windows. Reconstructed coronal and sagittal MPR images review ed. Images stored on PACS. All CT scanners at this facility use dose modulation, iterative reconstruction, and/or weight based d osing when appropriate to reduce radiation dose to as low as reasonably achievable (ALARA). [facility]: Dose Right [facility]: CareDose [facility]: Dose Right [facility]: Teradose 4D [facility]: Hey, Neighbor! RADIATION DOSE: mGy. LIMITATIONS: None. FINDINGS: ALIGNMENT: Grade 1 anterolisthesis C5 on C6 and C6 on C7. MINERALIZATION: Normal. VERTEBRAL BODIES: No fractures or dislocation. DISCS: Multilevel degenerative disc disease. 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 FACETS, LATERAL MASSES, POSTERIOR ELEMENTS: No fractures. No dislocation. No acute findings. Facet arthrosis. HARDWARE: None in the spine. VISUALIZED RIBS: No fractures. LUNG APICES AND SOFT TISSUES: No significant or acute findings. OTHER: No other significant finding. IMPRESSION: NO ACUTE FINDINGS IN THE CERVICAL SPINE. TECHNICAL DOCUMENTATION: JOB ID: [id number] Quality ID # [id number]: Final reports with documentation of one or more dose reduction techniques (e.g., Au tomated exposure control, adjustment of the mA and/or kV according to patient size, use of iterative reconstruction technique) 2010 [employer]- All Rights Reserved Reading location - IP/workstation name: [email or web address]
--- NOTE | 2019-05-05 17:28 | RADIOLOGY REPORT (SQ) ---
EXAM DESCRIPTION: KNEE RIGHT 4 VIEWS COMPLETED DATE/TIME: 05/05/2019 5:12 pm REASON FOR STUDY: Trauma COMPARISON: None. NUMBER OF VIEWS: Four views. TECHNIQUE: AP, lateral, and both oblique radiographic images acquired of the right knee. LIMITATIONS: None. FINDINGS: MINERALIZATION: Osteopenia. BONES: No obvious acute fracture or dislocation. No worrisome bone lesions. JOINT: No effusion. Tricompartmental osteoarthritis. SOFT TISSUES: No soft tissue swelling. No radio-opaque foreign body. OTHER: No other significant finding. IMPRESSION: No obvious acute bone abnormality of the right knee, in the setting of osteopenia. TECHNICAL DOCUMENTATION: JOB ID: [id number] [employer]- All Rights Reserved Reading location - IP/workstation name: [email or web address]
[2019-05-05 19:28] VITALS: BP 127/41
== END 2019-05-05 19:25 | disposition home or self-care (01) ==
LOC: ER 14:40
DX: S06.0X0A Concussion without loss of consciousness, initial encounter (principal); S09.12XA Laceration of muscle and tendon of head, initial encounter; S01.81XA Laceration without foreign body of other part of head, initial encounter; R51 Headache; M25.561 Pain in right knee; W18.39XA Other fall on same level, initial encounter; Y93.89 Activity, other specified; S40.022A Contusion of left upper arm, initial encounter; S40.021A Contusion of right upper arm, initial encounter; S80.12XA Contusion of left lower leg, initial encounter; S80.11XA Contusion of right lower leg, initial encounter; X58.XXXA Exposure to other specified factors, initial encounter; I25.10 Atherosclerotic heart disease of native coronary artery without angina pectoris; I10 Essential (primary) hypertension; Z95.5 Presence of coronary angioplasty implant and graft; Z79.02 Long term (current) use of antithrombotics/antiplatelets; Z88.0 Allergy status to penicillin; Z88.8 Allergy status to other drugs, medicaments and biological substances
CPT/HCPCS: 73564; 70450; 72125; 90715; 12052; J3490; 90471; 99284

== ENCOUNTER → 2019-06-04 | Outpatient (CLI) | payer MEDICARE, MEDICAID ==
--- NOTE | 2019-06-04 16:18 | RADIOLOGY REPORT (SQ) ---
EXAM DESCRIPTION: CHEST PA/LATERAL COMPLETED DATE/TIME: 06/04/2019 3:33 pm REASON FOR STUDY: COUGH COMPARISON: Two-view chest 08/18/2018, 12/16/2015, 04/25/2013 EXAM PARAMETERS: NUMBER OF VIEWS: two views TECHNIQUE: Digital Frontal and Lateral radiographic views of the chest acquired. RADIATION DOSE: NA LIMITATIONS: none FINDINGS: LUNGS AND PLEURA: No opacities, masses or pneumothorax. No pleural effusion. MEDIASTINUM AND HILAR STRUCTURES: No masses or contour abnormalities. HEART AND VASCULAR STRUCTURES: Mild cardiomegaly BONES: No acute findings. HARDWARE: None in the chest. OTHER: No other significant finding. IMPRESSION: Mild cardiomegaly. No acute findings TECHNICAL DOCUMENTATION: JOB ID: [id number]- All Rights Reserved Reading location - IP/workstation name: [email or web address]
== END ==
LOC: OD 15:19
PROVIDERS: ATTEND Physician Assistant
DX: R05 Cough (principal)
CPT/HCPCS: 71046

== ENCOUNTER → 2019-07-22 | Outpatient (CLI) | payer MEDICARE, MEDICAID ==
--- NOTE | 2019-07-22 14:24 | RADIOLOGY REPORT (SQ) ---
EXAM DESCRIPTION: U/S ABDOMEN COMPLETE W/O DOP COMPLETED DATE/TIME: 07/22/2019 11:32 am REASON FOR STUDY: ABNORMAL RESULTS OF LIVER FUNCTION TEST R94.5 ABNORMAL RESULTS OF LIVER FUNCTION STUDIES COMPARISON: None. TECHNIQUE: Dynamic and static grayscale images acquired of the abdomen and recorded on PACS. Additio nal selected color Doppler and spectral images recorded. Note: Exam does not meet criteria for a complete duplex/doppler study LIMITATIONS: Study limited due to acoustical interference from fat or from air in the bowel. FINDINGS: PANCREAS: Poorly seen secondary to acoustical interference from fat or from air in the bow el. No visualized masses. Duct normal caliber as seen. LIVER: Echotexture is coarse with increased echogenicity consistent with fatty infiltration. LIVER VASCULATURE: Normal directional flow of the main portal vein and hepatic veins. GALLBLADDER: Surgically absent. ULTRASOUND-DETECTED WATERS'S SIGN: Not applicable. INTRAHEPATIC DUCTS AND COMMON DUCT: CBD and intrahepatic ducts normal caliber. No filling defects. INFERIOR VENA CAVA: Normal flow. AORTA: No aneurysm. RIGHT KIDNEY: 10.5 cm. Cortical thinning. No solid or suspicious masses. No hydronephrosis. No calcifications. LEFT KIDNEY: 9.7 cm. Cortical thinning. No solid or suspicious masses. No hydronephrosis. No calcifications. SPLEEN:Normal size. No solid masses. PERITONEAL AND PLEURAL SPACES: No ascites or effusions. OTHER: No other significant finding. IMPRESSION: Fatty liver. Chronic medical renal disease. TECHNICAL DOCUMENTATION: JOB ID: [id number] [employer]- All Rights Reserved Reading location - IP/workstation name: [email or web address]
== END ==
LOC: RAD 10:36
PROVIDERS: ATTEND Physician Assistant
DX: K76.0 Fatty (change of) liver, not elsewhere classified (principal); N18.9 Chronic kidney disease, unspecified; R94.5 Abnormal results of liver function studies
CPT/HCPCS: 76700

== ENCOUNTER → 2019-08-23 | Outpatient (CLI) | payer MEDICARE, MEDICAID ==
--- NOTE | 2019-08-23 16:44 | RADIOLOGY REPORT (SQ) ---
EXAM DESCRIPTION: CAROTID DOPPLER COMPLETED DATE/TIME: 08/23/2019 4:30 pm REASON FOR STUDY: LT EYE RETINAL HEMORRHAGE H35.62 RETINAL HEMORRHAGE, LEFT EYE COMPARISON: CT brain 05/05/2019 Carotid Doppler 07/20/2018 TECHNIQUE: Grayscale ultrasound, Doppler velocity and spectra, and color Doppler images acquired of the extra-cranial carotid and vertebral arteries. Images stored on PACS. LIMITATIONS: None. FINDINGS: RIGHT CAROTID CCA Velocities: Within normal limits. ICA Velocities Peak systolic 0.79 m/s. End diastolic 0.14 m/s. Proximal ICA/CCA peak systolic ratio 1.3. Mixed calcific and noncalcific plaque at the right carotid bifurcation without flow significant steno sis LEFT CAROTID CCA Velocities: Within normal limits. ICA Velocities Peak systolic 0.65 m/s. End diastolic 0.15 m/s. Proximal ICA/CCA peak systolic ratio 1.5. Minimal calcific plaque at the left carotid bifurcation without flow significant stenosis VERTEBRAL ARTERIES: Antegrade flow. Normal waveforms. SUBCLAVIAN ARTERIES: Not evaluated OTHER: No other significant finding. IMPRESSION: No flow significant stenosis at the carotid bifurcations. COMMENT: Quality ID #[id number]: Velocity criteria are extrapolated from the diameter data as defined by t he Society of Radiologists in Ultrasound Consensus Conference. Radiology 2003: 229; 340-346. TECHNICAL DOCUMENTATION: JOB ID: [id number] [employer]- All Rights Reserved Reading location - IP/workstation name: [email or web address]
== END ==
LOC: SP 10:40
PROVIDERS: ATTEND Ophthalmology
DX: H35.62 Retinal hemorrhage, left eye (principal)
CPT/HCPCS: 93880